=== PATIENT | male | born 1980 | race Two or more races ===

== ENCOUNTER 2019-05-19 10:30 | Emergency (ER) | payer MEDICAID, OTHER ==
[~2019-05-19] VITALS: Ht 175.3 cm; Wt 95.3 kg
[2019-05-19 10:56] VITALS: BP 163/82
[2019-05-19] MEDS ORDERED: ceFAZolin IM 1GM/2.5ML STERILE WATER IM ONE (11:15)
[2019-05-19] MEDS ORDERED: TETANUS-DIPTH-ACEL PERTUSSIS 0.5ML SYRG IM ONE (11:15)
[2019-05-19] MEDS ORDERED: ceFAZolin 1GM VL ONE (11:37)
== END 2019-05-19 12:01 | disposition home or self-care (01) ==
LOC: ER 10:42
DX: S62.662A Nondisplaced fracture of distal phalanx of right middle finger, initial encounter for closed fracture (principal); S61.212A Laceration without foreign body of right middle finger without damage to nail, initial encounter; W26.8XXA Contact with other sharp object(s), not elsewhere classified, initial encounter; Y93.89 Activity, other specified; Y92.89 Other specified places as the place of occurrence of the external cause; Y99.8 Other external cause status
CPT/HCPCS: 12001; 29130; 73140; 90471; 90715; 96372; 99283; J0690

== ENCOUNTER 2019-07-20 18:30 | Emergency (ER) | payer MEDICAID ==
[~2019-07-20] VITALS: Ht 175.3 cm; Wt 99.8 kg
[2019-07-20 20:37] VITALS: BP 143/90
== END 2019-07-20 21:35 | disposition home or self-care (01) ==
LOC: ER 18:30
DX: M79.662 Pain in left lower leg (principal)

== ENCOUNTER 2022-09-02 10:10 | Emergency (ER) | payer MEDICAID ==
[~2022-09-02] VITALS: Ht 175.3 cm; Wt 72.0 kg
[2022-09-02 10:11] VITALS: BP 149/94
[2022-09-02 10:46] LABS: Basophils # (auto) 0 10 ^3/uL (0-0.2); Basophils % (auto) 0.8 % (0.0-2.0); Eosinophils # (auto) 0.1 10 ^3/uL (0-0.8); Hematocrit 45.7 % (41.0-53.0); Hemoglobin 15.7 g/dL (13.5-17.5); Lymphocytes # (auto) 1.6 10 ^3/uL (0.4-5.4); Lymphocytes % (auto) 32.8 % (10.0-50.0); Mean Corpuscular Hemoglobin 29.3 pg (28.0-32.0); Mean Corpuscular Hgb Conc. 34.3 g/dL (32.0-36.0); Mean Corpuscular Volume 85.6 fL (80.0-100.0); Monocytes # (auto) 0.4 10 ^3/uL (0-1.3); Monocytes % (auto) 7.9 % (0.0-12.0); Neutrophils # (auto) 2.7 10 ^3/uL (1.6-8.6); Neutrophils % (auto) 56.5 % (37.0-80.0); Nucleated Red Blood Cells % 0.1 %; Red Blood Cells 5.34 10^6/uL (4.5-5.90); Red Cell Distribution Width 13.4 % (11.8-14.3); White Blood Cell 4.8 10^3/uL (4.4-10.8)
[2022-09-02 11:10] LABS: Albumin 4.2 g/dL (3.4-5.0); Calcium 9.2 mg/dL (8.5-10.1); Potassium 4.3 mmol/L (3.5-5.1)
[2022-09-02 11:14] LABS: BUN/Creatinine Ratio 16.2; Bilirubin, Total 0.4 mg/dL (0.2-1.0); Total Protein 7.2 g/dL (6.4-8.2)
[2022-09-02] MEDS ORDERED: PANT40TA2 PO (13:27)
== END 2022-09-02 14:52 | disposition home or self-care (01) ==
LOC: ER 10:10
DX: K21.9 Gastro-esophageal reflux disease without esophagitis (principal); I10 Essential (primary) hypertension; Z98.890 Other specified postprocedural states
CPT/HCPCS: 36415; 71046; 76705; 80053; 82150; 83690; 84484; 85025; 93005